=== PATIENT | female | born 1980 | race Caucasian/White ===

== ENCOUNTER 2018-02-07 05:29 | Inpatient (IN) | payer OTHER ==
[2018-02-07] VITALS (8 sets, daily range): BP systolic 127–158; BP diastolic 81–94
[~2018-02-07] VITALS: Ht 170.2 cm; Wt 90.0 kg
[2018-02-07 06:22] LABS: BASOPHIL (%) 0.4 % (0-1); BASOPHIL COUNT 0.1 K/uL (0-0.1); EOSINOPHIL (%) 1.1 % (0-5); EOSINOPHIL COUNT 0.2 K/uL (0-0.3); HEMATOCRIT 32.9 % (36.0-46.0); HEMOGLOBIN 11.3 G/DL (11.9-15.5); IMMATURE GRANULOCYTE (%) 1.2 % (0.0-0.7); LYMPHOCYTE (%) 20.7 % (15-42); LYMPHOCYTE COUNT 3.4 K/uL (1.0-2.8); MCH 28.8 PG (29.0-34.0); MCHC 34.3 G/DL (30.0-36.0); MCV 83.7 FL (83-99); MONOCYTE (%) 9.2 % (3-12); MONOCYTE COUNT 1.5 K/uL (0-0.8); NEUTROPHIL (%) 67.4 % (45-76); PLATELET COUNT 322 K/uL (156-360); RBC DIS.WIDTH-CV 13.7 % (11.8-14.6); RBC DIS.WIDTH-SD 42.1 % (39-53); RED BLOOD COUNT 3.93 M/uL (3.80-5.20); WHITE BLOOD COUNT 16.3 K/uL (4.1-10.2)
[2018-02-07] MEDS ORDERED: MOTRIN800 MG PO (07:31)
[2018-02-08 07:14] VITALS: BP 116/71
[2018-02-08 16:15] VITALS: BP 142/91
[2018-02-08 23:10] VITALS: BP 128/81
[2018-02-09 07:26] VITALS: BP 128/70
[2018-02-09 14:53] VITALS: BP 145/95
[2018-02-09 15:27] VITALS: BP 133/74
== END 2018-02-09 16:56 | disposition home or self-care (01) | DRG 775 ==
LOC: LDRP-OP 05:29 → 2WEST 05:30 → LDRP-OP 09:07 → 2WEST 02-09 16:56 → LDRP-OP 04-01 11:56
PROVIDERS: Nurse Practitioner
PROC: 10E0XZZ Delivery of Products of Conception, External Approach (ICD-10-PCS; principal; 2018-02-07)
DX: O48.0 Post-term pregnancy (principal); O99.354 Diseases of the nervous system complicating childbirth; O62.3 Precipitate labor; Z37.0 Single live birth; Z3A.41 41 weeks gestation of pregnancy; F41.9 Anxiety disorder, unspecified; K58.9 Irritable bowel syndrome, unspecified; O99.62 Diseases of the digestive system complicating childbirth; O12.04 Gestational edema, complicating childbirth; G43.909 Migraine, unspecified, not intractable, without status migrainosus; O99.344 Other mental disorders complicating childbirth; Z81.1 Family history of alcohol abuse and dependence; Z82.3 Family history of stroke; Z81.8 Family history of other mental and behavioral disorders; Z83.3 Family history of diabetes mellitus; Z80.1 Family history of malignant neoplasm of trachea, bronchus and lung; Z82.0 Family history of epilepsy and other diseases of the nervous system
CPT/HCPCS: 85025; J1050; J7120